=== PATIENT | male | born 1995 | race Caucasian/White ===

== ENCOUNTER 2019-07-16 16:58 | Emergency (ER) | payer OTHER ==
[~2019-07-16] VITALS: Ht 182.9 cm; Wt 92.2 kg
[2019-07-16] MEDS ORDERED: BOOSTRIX/ADACEL VACCINE (DIPHTH/PERTUSS/ACELL/TETANUS) 0.5ML SYR IM ONE (17:15)
[2019-07-16] MEDS ORDERED: LIDOCAINE 2% MDV 20ML VIAL SC ONE (17:15)
[2019-07-16] MEDS ORDERED: DOXYCYCLINE HYCLATE 100MG TABLET PO ONE (17:45)
[2019-07-16] MEDS ORDERED: DOXY100C37 PO (17:50)
[2019-07-16 17:56] VITALS: BP 136/85
== END 2019-07-16 17:56 | disposition home or self-care (01) ==
LOC: M ED 16:58
DX: S69.92XA Unspecified injury of left wrist, hand and finger(s), initial encounter (principal); W26.8XXA Contact with other sharp object(s), not elsewhere classified, initial encounter; Y92.828 Other wilderness area as the place of occurrence of the external cause; Z88.0 Allergy status to penicillin; Z23 Encounter for immunization